=== PATIENT | female | born 1975 | race Caucasian/White ===

== ENCOUNTER → 2019-10-19 | Outpatient (CLI) | payer BC | LOC: SJCVCIMAG 10-04 14:55 → NUC 13:23 → SJCVCIMAG 13:56 | DX: I34.0 Nonrheumatic mitral (valve) insufficiency (principal); I07.1 Rheumatic tricuspid insufficiency; R07.9 Chest pain, unspecified; E78.5 Hyperlipidemia, unspecified ==